=== PATIENT | female | born 1960 | race Two or more races ===

== ENCOUNTER 2025-04-01 10:07 | Outpatient (CLI) | payer OTHER ==
[2025-04-01 12:12] LABS: ALT/SGPT 26.0 U/L (12-78); AST/SGOT 17.0 U/L (15-37); BILIRUBIN TOTAL 0.55 mg/dL (0.3-1.2); BUN CREA RATIO 19.0 (7.0-25.0); CREATININE SERUM 0.88 mg/dL (0.55-1.02); GFR 64.29; GLOBULINA 3.4 G/DL (2.4-3.5); GLUCOSE FASTING 85.0 mg/dL (65-100); OSMOLALITY SERUM 284.0 MOSM/KG (275-295); T3 UPTAKE 31.0 % (30-39); T4 TOTAL 8.35 UG/DL (4.8-13.9); TSH 2.09 uIU/mL (0.358-3.74)
[2025-04-01 12:31] LABS: T3 TOTAL 1.23 ng/ml (0.846-2.02); VITAMIN D3 25 HYDROXY 45.87 ng/ml (30-120)
[2025-04-03 09:07] LABS: CALCIUM IONIZED 5.1 mg/dL (4.5-5.6)
== END 2025-04-01 10:12 | disposition home or self-care (01) ==
LOC: LAB 10:07
PROVIDERS: ATTEND Orthopaedic Surgery
DX: E55.9 Vitamin D deficiency, unspecified (principal); E56.1 Deficiency of vitamin K; E21.3 Hyperparathyroidism, unspecified; M81.8 Other osteoporosis without current pathological fracture; E88.89 Other specified metabolic disorders; E03.9 Hypothyroidism, unspecified